=== PATIENT | female | born 1970 | race Caucasian/White ===

== ENCOUNTER 2018-04-05 08:56 | Day surgery (SDC) | payer OTHER ==
[2018-04-04 13:54] VITALS: BMI 29.3
[2018-04-05] MEDS ORDERED: LIDOCAINE HCL/PF 1% SDV 5ML VIAL ONE (09:40)
[2018-04-05] MEDS ORDERED: PROPOFOL 20 ML ONE ×2 (09:40)
[2018-04-05 10:58] VITALS: TEMP 98
[2018-04-05 11:49] VITALS: BP 109/62; PULSE 67
--- NOTE | 2018-04-06 17:19 | PATH ---
Surgical Pathology Report Patient Name: JAYLIN SHEN [facility]. Rec. #: [id number] /Age/Gender: 1970 (Age: 48) / F Account: [id number] Location: ASU-ENDOSCOPY Taken: 04/05/2018 Received: 04/05/2018 Reported: 04/06/2018 Physicians: Tashi Klein D.O. Specimen(s) Received A: BX CECUM B: BX RIGHT COLON C: BX TRANSVERSE COLON D: BX DESCENDING COLON E: BX SIGMOID COLON F: BX RECTUM Clinical History Ulcerative colitis Postoperative diagnosis: Diverticulosis, quiescent colitis Final Diagnosis A. CECUM, BIOPSY: COLONIC MUCOSA WITH MILD CHRONIC INFLAMMATION. B. RIGHT COLON, BIOPSY: COLONIC MUCOSA WITH MILD CHRONIC INFLAMMATION. C.TRANSVERSE COLON, BIOPSY: COLONIC MUCOSA WITH MILD CHRONIC INFLAMMATION AND LYMPHOID FOLLICLES. D. DESCENDING COLON, BIOPSY: COLONIC MUCOSA WITH MILD CHRONIC INFLAMMATION AND LYMPHOID FOLLICLES. E. SIGMOID COLON, BIOPSY: COLONIC MUCOSA WITH MILD CHRONIC INFLAMMATION AND LYMPHOID FOLLICLES. F. RECTUM, BIOPSY: COLONIC MUCOSA WITH MILD CHRONIC INFLAMMATION AND LYMPHOID FOLLICLES. COMMENT: NO ACUTE INFLAMMATION. NEGATIVE FOR DYSPLASIA. Electronically Signed Dontae Garibay M.D. Gross Description A. Received in formalin, labeled "biopsy cecum" are 4 mathews, irregular portions of soft tissue ranging from 0.1-0.4 cm. in greatest dimension. The specimens are submitted in toto in one cassette. B. Received in formalin labeled "biopsy right colon," is a 0.8 x 0.6 x 0.1 cm aggregate of mathews soft tissue fragments. The formalin is filtered and the specimen is entirely submitted in one cassette. C. Received in formalin labeled "biopsy transverse colon," is a 0.9 x 0.7 x 0.1 cm aggregate of mathews soft tissue fragments. The formalin is filtered and the specimen is entirely submitted in one cassette. D. Received in formalin labeled "biopsy descending colon," is a 0.9 x 0.8 x 0.1 cm aggregate of mathews soft tissue fragments. The formalin is filtered and the specimen is entirely submitted in one cassette. E. Received in formalin labeled "biopsy sigmoid colon," is a 1.3 x 0.9 x 0.1 cm aggregate of mathews soft tissue fragments. The formalin is filtered and the specimen is entirely submitted in one cassette. F. Received in formalin, labeled "biopsy rectum" are 8 mathews, irregular portions of soft tissue ranging from 0.1-0.5 cm. in greatest dimension. The specimens are submitted in toto in one cassette. 04/05/201804/05/2018
== END 2018-04-05 11:53 | disposition home or self-care (01) ==
LOC: JASU-ENDO 08:56
PROVIDERS: ATTEND Internal Medicine Gastroenterology
PROC: 0DBE8ZX Excision of Large Intestine, Via Natural or Artificial Opening Endoscopic, Diagnostic (ICD-10-PCS; principal; 2018-04-05 10:30)
DX: K51.90 Ulcerative colitis, unspecified, without complications (principal); K57.30 Diverticulosis of large intestine without perforation or abscess without bleeding; K64.8 Other hemorrhoids
CPT/HCPCS: 84703; 88305-TC

== ENCOUNTER 2022-07-02 05:37 | Day surgery (SDC) | payer OTHER ==
[2022-06-16 14:00] VITALS: BMI 32.7
[2022-07-02 12:22] VITALS: TEMP 97.8
[2022-07-02 12:52] VITALS: PULSE 69
[2022-07-02 13:09] VITALS: BP 114/61; RESP 15
== END 2022-07-02 13:05 | disposition home or self-care (01) ==
LOC: JASU-ENDO 05:37
PROVIDERS: ATTEND Internal Medicine Gastroenterology
PROC: 0DBL8ZX Excision of Transverse Colon, Via Natural or Artificial Opening Endoscopic, Diagnostic (ICD-10-PCS; 2022-07-02)
PROC: 0DBN8ZX Excision of Sigmoid Colon, Via Natural or Artificial Opening Endoscopic, Diagnostic (ICD-10-PCS; 2022-07-02)
PROC: 0DBP8ZX Excision of Rectum, Via Natural or Artificial Opening Endoscopic, Diagnostic (ICD-10-PCS; 2022-07-02)
PROC: 0DBM8ZX Excision of Descending Colon, Via Natural or Artificial Opening Endoscopic, Diagnostic (ICD-10-PCS; 2022-07-02)
PROC: 0DBH8ZX Excision of Cecum, Via Natural or Artificial Opening Endoscopic, Diagnostic (ICD-10-PCS; 2022-07-02)
PROC: 0DBK8ZX Excision of Ascending Colon, Via Natural or Artificial Opening Endoscopic, Diagnostic (ICD-10-PCS; principal; 2022-07-02 10:45)
DX: Z12.11 Encounter for screening for malignant neoplasm of colon (principal); K57.30 Diverticulosis of large intestine without perforation or abscess without bleeding; K64.8 Other hemorrhoids; Z87.19 Personal history of other diseases of the digestive system
CPT/HCPCS: 81025; 88305-TC

== ENCOUNTER 2024-03-21 21:55 | Inpatient (IN) | payer OTHER ==
[2024-03-21] MEDS ORDERED: morphine SULFATE 4 MG/ML VIAL ONE (23:04)
[2024-03-21] MEDS ORDERED: ACETAMINOPHEN INJECTION 100 ML IVPB ONE (23:04)
[2024-03-21] MEDS: LACTATED RINGERS SOLUTION 1,000 ML IV STA (23:26)
[2024-03-21] MEDS: morphine CARPU-JECT 4 MG/1 ML DISP.SYRIN IVPUSH ONE (23:26)
[2024-03-21] MEDS: ACETAMINOPHEN 1000 MG/100 ML BAG IVPB ONE (23:26)
[2024-03-21 23:32] LABS: HEMATOCRIT 35.2 % (32.4-45.2); HEMOGLOBIN 11.8 GM/dL (10.7-15.3); MCH 29.1 pg (25.7-33.7); MCHC 33.5 g/dl (32.0-36.0); MEAN CELL VOLUME 86.9 fl (80-96); MEAN PLT VOLUME 7.8 fl (7.5-11.1); PLATELET COUNT 270 10^3/uL (134-434); RBC 4.04 M/mm3 (3.60-5.2); RDW 16.1 % (11.6-15.6); WHITE BLOOD COUNT 7.1 K/mm3 (4.0-10.0)
[2024-03-21 23:34] LABS: EPI CELLS 25 /uL (0-25.1); HYALINE CASTS 8 /uL (0-3.1); URINE APPEARANCE TURBID; URINE BACTERIA 55 /uL (0-1359); URINE BILIRUBIN 1+ (NEGATIVE); URINE COLOR ORANGE; URINE GLUCOSE (UA) NEGATIVE (NEGATIVE); URINE KETONE 1+ (NEGATIVE); URINE LEUK ESTERASE 2+ (NEGATIVE); URINE NITRITE NEGATIVE (NEGATIVE); URINE PROTEIN 2+ (NEGATIVE); URINE WBC 1468 /uL (0-25.8)
[2024-03-21 23:38] LABS: INR 1.06 (0.83-1.09)
[2024-03-21 23:41] LABS: ACTIVATED PTT 27.3 SECONDS (25.2-36.5)
[2024-03-21 23:50] LABS: POTASSIUM 3.7 mmol/L (3.5-5.1)
[2024-03-21 23:53] LABS: ALBUMIN 3.1 g/dl (3.4-5.0); BLOOD UREA NITROGEN 13.1 mg/dL (7-18)
[2024-03-21 23:56] LABS: CREATININE 0.8 mg/dL (0.55-1.3)
[2024-03-21 23:58] LABS: BILIRUBIN,TOTAL 0.6 mg/dL (0.2-1); TOT PROT 6.1 g/dl (6.4-8.2)
[2024-03-22 00:07] LABS: URINE RBC 26400.5 /uL (0-23.9); YEAST NONE SEEN (NEGATIVE)
[2024-03-22] MEDS ORDERED: CEFTRIAXONE 1 GM/50 ML BAG ONE (00:17)
[2024-03-22 00:38] LABS: ANISOCYTOSIS 1+; MACROCYTOSIS 1+; OVALOCYTE 1+
[2024-03-22] MEDS: CEFTRIAXONE 1,000 MG in DEXTROSE 5%-WATER - 50 ML IVPB ONE (00:41)
[2024-03-22 00:47] LABS: PLATELET ESTIMATE ADEQUATE
[2024-03-22] MEDS: LACTATED RINGERS SOLUTION 1,000 ML IV STA ×2 (01:31→02:10)
[2024-03-22] MEDS ORDERED: ONDANSETRON 4 MG/2 ML VIAL ONE (02:05)
[2024-03-22] MEDS: ONDANSETRON 4 MG/2 ML VIAL IVPUSH ONE (02:10)
[2024-03-22] MEDS ORDERED: EPINEPHrine/PF 1 MG/1 ML (1:1,000) AMPULE ONE (02:27)
[2024-03-22] MEDS ORDERED: methylPREDNISolone NA SUCC 125 MG/2 ML VIAL ONE (02:27)
[2024-03-22] MEDS ORDERED: PIPERACILLIN/TAZOB 4.5 GM 4.5 GM/100 ML BAG IVPB ONE (02:27)
[2024-03-22] MEDS ORDERED: FAMOTIDINE 20 MG/50 ML IVPB 20 MG/50 ML MG IVPB ONE (02:28)
[2024-03-22] MEDS ORDERED: ANAPHYLAXIS KIT ONE (02:29)
[2024-03-22] MEDS ORDERED: ONDANSETRON 4 MG/2 ML VIAL IVPUSH PRN ×2 (02:41→19:49)
[2024-03-22] MEDS: PIPERACILLIN/TAZOB 4.5 GM 4.5 GM in DEXTROSE 5%-WATER 100 ML IVPB ONE (02:44)
[2024-03-22] MEDS: EPINEPHrine 1:1,000 0.3 MG/0.3 ML SYR IM ONE (02:44)
[2024-03-22] MEDS: methylPREDNISolone NA SUCC 125 MG/2 ML VIAL IVPUSH ONE (02:44)
[2024-03-22] MEDS ORDERED: FENTANYL CITRATE/PF 50 MCG/ML VIAL IVPUSH PRN ×2 (02:51→19:49)
[2024-03-22] MEDS: FAMOTIDINE 20 MG/50 ML IVPB 20 MG/50 ML MG IVPB ONE (02:58)
[2024-03-22 03:16] LABS: HEMOGLOBIN 10.8 GM/dL (10.7-15.3); PLATELET COUNT 219 10^3/uL (134-434); RDW 16.2 % (11.6-15.6)
[2024-03-22 03:21] LABS: HEMATOCRIT 31.8 % (32.4-45.2); MCH 29.5 pg (25.7-33.7); MCHC 33.9 g/dl (32.0-36.0); MEAN CELL VOLUME 87.1 fl (80-96); MEAN PLT VOLUME 7.9 fl (7.5-11.1); RBC 3.65 M/mm3 (3.60-5.2); WHITE BLOOD COUNT 8.3 K/mm3 (4.0-10.0)
[2024-03-22] MEDS: LACTATED RINGERS SOLUTION 1,000 ML/1,000 ML INFUS.BAG IV SCH (03:31)
[2024-03-22 03:33] LABS: POTASSIUM 3.9 mmol/L (3.5-5.1)
[2024-03-22 03:35] LABS: CALCIUM 7.5 mg/dL (8.5-10.1)
[2024-03-22 03:36] LABS: ALBUMIN 2.8 g/dl (3.4-5.0); BLOOD UREA NITROGEN 11.9 mg/dL (7-18); MAGNESIUM 1.8 mg/dL (1.8-2.4)
[2024-03-22 03:39] LABS: CREATININE 0.7 mg/dL (0.55-1.3); PHOSPHOROUS 2.9 mg/dL (2.5-4.9)
[2024-03-22 03:41] LABS: BILIRUBIN,TOTAL 0.6 mg/dL (0.2-1); INR 1.13 (0.83-1.09); PROTHROMBIN TIME (PATIENT) 12.7 SEC (9.7-13.0); TOT PROT 5.6 g/dl (6.4-8.2)
[2024-03-22 03:42] LABS: LACTIC ACID 2.1 mmol/L (0.4-2.0)
[2024-03-22 03:43] LABS: ACTIVATED PTT 27.5 SECONDS (25.2-36.5)
[2024-03-22] MEDS: PIPERACILLIN/TAZOB 4.5 GM 4.5 GM in DEXTROSE 5%-WATER 100 ML IVPB SCH ×2 (04:43→21:21)
[2024-03-22 05:18] LABS: ANISOCYTOSIS 3+; MACROCYTOSIS 0; OVALOCYTE 1+; ROULEAU 1+
[2024-03-22] MEDS: KCL 10 MEQ IVPB 10 MEQ/100 ML INFUS.BAG IVPB SCH (05:19)
[2024-03-22] MEDS: MAGNESIUM 1GM/D5W 100ML - 100 ML IVPB IVPB ONE (06:36)
[2024-03-22] MEDS: CALCIUM GLUC IN NACL, ISO-OSM 1 GM/50 ML BAG IVPB ONE (06:58)
[2024-03-22] MEDS: INSULIN ASPART SLIDING SCALE (NOVOLOG) 1 VIAL SQ SCH (06:58)
[2024-03-22] MEDS: MUPIROCIN 2% TOPICAL OINTMENT FOR DECOLONIZATION NS SCH (09:00)
[2024-03-22] MEDS: PANTOPRAZOLE SODIUM 40 MG VIAL IVPUSH SCH (09:02)
[2024-03-22] MEDS ORDERED: ENOXAPARIN NA (PORCINE) 40 MG/0.4 ML DISP.SYRIN SQ SCH (10:00)
[2024-03-22] MEDS: DEXTROSE 5%-LACTATED RINGERS 1,000 ML IV SCH ×2 (10:56→21:22)
[2024-03-22] MEDS: ACETAMINOPHEN 1000 MG/100 ML BAG IVPB PRN (15:07)
[2024-03-22] MEDS: CEFTRIAXONE 1,000 MG in DEXTROSE 5%-WATER - 50 ML IVPB SCH (17:58)
[2024-03-22] MEDS ORDERED: ACETAMINOPHEN 1000 MG/100 ML BAG IVPB PRN (19:49)
[2024-03-22] MEDS ORDERED: CHLORHEXIDINE GLUCONATE 4% CLEANSER FOR DECOLONIZATION TP SCH (22:00)
[2024-03-23] MEDS: INSULIN ASPART SLIDING SCALE (NOVOLOG) 1 VIAL SQ SCH
[2024-03-23] MEDS ORDERED: PIPERACILLIN/TAZOB 4.5 GM 4.5 GM in DEXTROSE 5%-WATER 100 ML IVPB SCH (03:00)
[2024-03-23] MEDS: CEFTRIAXONE 1 GM in DEXTROSE 5%-WATER - 50 ML IVPB SCH (09:06)
[2024-03-23] MEDS: PANTOPRAZOLE SODIUM 40 MG VIAL IVPUSH SCH (09:06)
[2024-03-23 10:42] LABS: HEMATOCRIT 31.8 % (32.4-45.2); HEMOGLOBIN 10.2 GM/dL (10.7-15.3); MCH 28.4 pg (25.7-33.7); MCHC 32.2 g/dl (32.0-36.0); MEAN CELL VOLUME 88.3 fl (80-96); MEAN PLT VOLUME 8.4 fl (7.5-11.1); PLATELET COUNT 289 10^3/uL (134-434); RDW 15.9 % (11.6-15.6)
[2024-03-23 11:05] LABS: POTASSIUM 3.7 mmol/L (3.5-5.1)
[2024-03-23 11:08] LABS: CALCIUM 8.6 mg/dL (8.5-10.1)
[2024-03-23 11:09] LABS: ALBUMIN 2.7 g/dl (3.4-5.0); BLOOD UREA NITROGEN 10.9 mg/dL (7-18); MAGNESIUM 2.2 mg/dL (1.8-2.4)
[2024-03-23 11:12] LABS: CREATININE 0.6 mg/dL (0.55-1.3); PHOSPHOROUS 2.1 mg/dL (2.5-4.9)
[2024-03-23 11:13] LABS: TOT PROT 5.9 g/dl (6.4-8.2)
[2024-03-23 11:14] LABS: BILIRUBIN,TOTAL 0.4 mg/dL (0.2-1)
[2024-03-23] MEDS: ACETAMINOPHEN 1000 MG/100 ML BAG IVPB PRN (11:14)
[2024-03-23 11:43] LABS: ANISOCYTOSIS 0; MACROCYTOSIS 0
[2024-03-23] MEDS: POTASSIUM CHLORIDE 10 MEQ in SODIUM CHLORIDE 0.45% 1,000 ML IVPB SCH (13:01)
[2024-03-24 08:10] LABS: CARCINOEMBRYONIC ANTIGEN 2.8 ng/mL (0.0-4.7)
[2024-03-24] MEDS: ACETAMINOPHEN 1000 MG/100 ML BAG IVPB PRN (12:33)
[2024-03-24 15:43] LABS: BASO % 0.2 % (0-2.0); HEMATOCRIT 31.2 % (32.4-45.2); HEMOGLOBIN 10.1 GM/dL (10.7-15.3); LYMPH % 6.4 % (8-40); MCH 27.9 pg (25.7-33.7); MCHC 32.2 g/dl (32.0-36.0); MEAN CELL VOLUME 86.4 fl (80-96); MEAN PLT VOLUME 7.9 fl (7.5-11.1); MONO % 5.7 % (3.8-10.2); NEUT % 86.7 % (42.8-82.8); PLATELET COUNT 298 10^3/uL (134-434); RBC 3.61 M/mm3 (3.60-5.2); RDW 16.3 % (11.6-15.6); WHITE BLOOD COUNT 11.6 K/mm3 (4.0-10.0)
[2024-03-24 16:10] LABS: POTASSIUM 3.5 mmol/L (3.5-5.1)
[2024-03-24 16:12] LABS: CALCIUM 7.9 mg/dL (8.5-10.1)
[2024-03-24 16:13] LABS: ALBUMIN 2.3 g/dl (3.4-5.0); BLOOD UREA NITROGEN 6.1 mg/dL (7-18)
[2024-03-24 16:16] LABS: CREATININE 0.4 mg/dL (0.55-1.3)
[2024-03-24 16:17] LABS: BILIRUBIN,TOTAL 0.5 mg/dL (0.2-1); TOT PROT 5.4 g/dl (6.4-8.2)
[2024-03-25] MEDS ORDERED: cefTRIAXone SODIUM 1 GM VIAL ONE (10:18)
[2024-03-25] MEDS: MESALAMINE 800 MG TABLET.DR PO SCH (11:11)
[2024-03-25] MEDS: D5-1/2NS+10 MEQ KCL - 10 MEQ/1,000 ML INFUS.BAG IV SCH (13:00)
[2024-03-25] MEDS: DEXTROSE 50%-WATER 25 GM/50 ML DISP.SYRIN IVPUSH ONE (13:01)
[2024-03-25] MEDS: SIMETHICONE 80 MG TAB.CHEW (FP) PO SCH (17:13)
[2024-03-26 09:44] LABS: HEMATOCRIT 32.3 % (32.4-45.2); HEMOGLOBIN 10.9 GM/dL (10.7-15.3); MCH 28.6 pg (25.7-33.7); MCHC 33.8 g/dl (32.0-36.0); MEAN CELL VOLUME 84.8 fl (80-96); MEAN PLT VOLUME 7.6 fl (7.5-11.1); PLATELET COUNT 386 10^3/uL (134-434); RBC 3.82 M/mm3 (3.60-5.2); RDW 16.2 % (11.6-15.6)
[2024-03-26 10:06] LABS: POTASSIUM 3.2 mmol/L (3.5-5.1)
[2024-03-26 10:15] LABS: ALBUMIN 2.4 g/dl (3.4-5.0)
[2024-03-26 10:18] LABS: CREATININE 0.5 mg/dL (0.55-1.3)
[2024-03-26 10:19] LABS: BILIRUBIN,TOTAL 0.4 mg/dL (0.2-1); TOT PROT 5.5 g/dl (6.4-8.2)
[2024-03-26 10:25] LABS: ANISOCYTOSIS 0; MACROCYTOSIS 0
[2024-03-26] MEDS: KCL 10 MEQ IVPB 10 MEQ/100 ML INFUS.BAG IVPB SCH (18:03)
[2024-03-26] MEDS: POTASSIUM CHLORIDE ORAL LIQUID 20 MEQ/15 ML PO ONE (18:07)
[2024-03-27 09:17] LABS: BASO % 0.3 % (0-2.0); EOS % 1.2 % (0-4.5); HEMATOCRIT 34.2 % (32.4-45.2); HEMOGLOBIN 11.4 GM/dL (10.7-15.3); LYMPH % 9.8 % (8-40); MCH 28.4 pg (25.7-33.7); MCHC 33.4 g/dl (32.0-36.0); MEAN PLT VOLUME 7.6 fl (7.5-11.1); MONO % 5.8 % (3.8-10.2); NEUT % 82.9 % (42.8-82.8); PLATELET COUNT 424 10^3/uL (134-434); RBC 4.02 M/mm3 (3.60-5.2); RDW 16.3 % (11.6-15.6); WHITE BLOOD COUNT 14.3 K/mm3 (4.0-10.0)
[2024-03-27 09:48] LABS: CHLORIDE 108 mmol/L (98-107); POTASSIUM 3.4 mmol/L (3.5-5.1); SODIUM 138 mmol/L (136-145)
[2024-03-27 10:05] LABS: ALK PHOS 119 U/L (45-117)
[2024-03-27 10:06] LABS: ALBUMIN 2.4 g/dl (3.4-5.0); ANION GAP 10 mmol/L (4-13); CALCIUM 8.3 mg/dL (8.5-10.1); CO2 21 mmol/L (21-32); GLUCOSE,RANDOM 173 mg/dL (74-106)
[2024-03-27 10:09] LABS: CREATININE 0.5 mg/dL (0.55-1.3); SGOT/AST 41 U/L (15-37); SGPT/ALT 30 U/L (13-61)
[2024-03-27 10:10] LABS: BILIRUBIN,TOTAL 0.3 mg/dL (0.2-1)
[2024-03-27 10:11] LABS: BLOOD UREA NITROGEN 2.8 mg/dL (7-18); TOT PROT 5.7 g/dl (6.4-8.2)
[2024-03-27] MEDS: KCL 10 MEQ IVPB 10 MEQ/100 ML INFUS.BAG IVPB SCH (10:43)
[2024-03-27] MEDS: ACETAMINOPHEN 325 MG TABLET (FP) PO PRN (14:54)
[2024-03-27] MEDS ORDERED: ACETAMINOPHEN 1000 MG/100 ML BAG IVPB PRN (16:57)
[2024-03-27] MEDS: MELATONIN 5 MG TABLETS PO PRN (23:52)
[2024-03-28 08:55] LABS: CHLORIDE 107 mmol/L (98-107); POTASSIUM 3.6 mmol/L (3.5-5.1); SODIUM 139 mmol/L (136-145)
[2024-03-28 08:57] LABS: EOS % 1.6 % (0-4.5); HEMOGLOBIN 11.4 GM/dL (10.7-15.3); LYMPH % 17.3 % (8-40); MCH 27.6 pg (25.7-33.7); MCHC 32.5 g/dl (32.0-36.0); MEAN PLT VOLUME 7.2 fl (7.5-11.1); MONO % 10.7 % (3.8-10.2); NEUT % 70.4 % (42.8-82.8); PLATELET COUNT 478 10^3/uL (134-434); RBC 4.12 M/mm3 (3.60-5.2); RDW 16.3 % (11.6-15.6); WHITE BLOOD COUNT 12.9 K/mm3 (4.0-10.0)
[2024-03-28 08:58] LABS: CALCIUM 8.1 mg/dL (8.5-10.1)
[2024-03-28 08:59] LABS: ALBUMIN 2.4 g/dl (3.4-5.0); ANION GAP 8 mmol/L (4-13); CO2 24 mmol/L (21-32); GLUCOSE,RANDOM 121 mg/dL (74-106); MAGNESIUM 1.9 mg/dL (1.8-2.4)
[2024-03-28 09:02] LABS: CREATININE 0.4 mg/dL (0.55-1.3); PHOSPHOROUS 3.1 mg/dL (2.5-4.9); SGOT/AST 132 U/L (15-37); SGPT/ALT 112 U/L (13-61)
[2024-03-28 09:04] LABS: BILIRUBIN,TOTAL 0.3 mg/dL (0.2-1); TOT PROT 5.5 g/dl (6.4-8.2)
[2024-03-28 09:05] LABS: ALK PHOS 129 U/L (45-117)
[2024-03-28 11:16] LABS: EPI CELLS 8 /uL (0-25.1); HYALINE CASTS 0 /uL (0-3.1); URINE APPEARANCE CLEAR; URINE BACTERIA 9 /uL (0-1359); URINE BILIRUBIN NEGATIVE (NEGATIVE); URINE COLOR YELLOW; URINE GLUCOSE (UA) NEGATIVE (NEGATIVE); URINE KETONE NEGATIVE (NEGATIVE); URINE LEUK ESTERASE 1+ (NEGATIVE); URINE NITRITE NEGATIVE (NEGATIVE); URINE PROTEIN NEGATIVE (NEGATIVE); URINE RBC 39 /uL (0-23.9); URINE UROBILINOGEN 0.2 mg/dL (0.2-1.0); URINE WBC 7 /uL (0-25.8)
[2024-03-28 11:51] LABS: ERYTHROCYTE SEDIMENTATION RATE 43 mm/hr (0-30)
[2024-03-28] MEDS ORDERED: POTASSIUM CHLORIDE TABS 20 MEQ TABLET.ER (FP) PO SCH (13:30)
[2024-03-28] MEDS: POTASSIUM CHLORIDE ORAL LIQUID 20 MEQ/15 ML PO ONE (13:36)
[2024-03-28] MEDS: POTASSIUM CHLORIDE TABS 20 MEQ TABLET.ER (FP) PO ONE (13:38)
[2024-03-28] MEDS: ACETAMINOPHEN/CAFFEINE/BUTALBITAL 1 TAB PO ONE (23:21)
[2024-03-28] MEDS: hydrOXYzine PAMOATE 25 MG CAPSULE (FP) PO ONE (23:23)
[2024-03-29 09:15] LABS: HEMOGLOBIN 11.8 GM/dL (10.7-15.3); MCH 28.6 pg (25.7-33.7); MCHC 33.7 g/dl (32.0-36.0); MEAN CELL VOLUME 84.8 fl (80-96); MEAN PLT VOLUME 7.2 fl (7.5-11.1); PLATELET COUNT 541 10^3/uL (134-434); RBC 4.13 M/mm3 (3.60-5.2); RDW 16.5 % (11.6-15.6); WHITE BLOOD COUNT 11.6 K/mm3 (4.0-10.0)
[2024-03-29 09:21] LABS: INR 1.19 (0.83-1.09); PROTHROMBIN TIME (PATIENT) 13.4 SEC (9.7-13.0)
[2024-03-29 09:40] LABS: POTASSIUM 3.9 mmol/L (3.5-5.1)
[2024-03-29 09:44] LABS: ALBUMIN 2.5 g/dl (3.4-5.0); CALCIUM 8.4 mg/dL (8.5-10.1)
[2024-03-29 09:45] LABS: BLOOD UREA NITROGEN 3.1 mg/dL (7-18)
[2024-03-29 09:47] LABS: CREATININE 0.7 mg/dL (0.55-1.3)
[2024-03-29 09:48] LABS: BILIRUBIN,TOTAL 0.3 mg/dL (0.2-1); TOT PROT 5.8 g/dl (6.4-8.2)
[2024-03-29 10:58] LABS: ANISOCYTOSIS 0; HELMET CELLS 0; HOWELL-JOLLY BODIES 0; MACROCYTOSIS 0; OVALOCYTE 0; ROULEAU 0; SICKELED CELLS 0; TARGET CELLS 0; TEAR DROP CELLS 0; TOXIC GRANULATION 0
[2024-03-29] MEDS: SODIUM CHLORIDE 1,000 ML IV SCH (12:01)
[2024-03-29] MEDS: BISACODYL 5 MG TABLET.DR (FP) PO ONE (17:14)
[2024-03-29] MEDS: PEG 3350/NA SULF BICARB CL/KCL 4000 ML SOLN.RECON PO ONE (18:27)
[2024-03-30 08:14] LABS: BASO % 0.8 % (0-2.0); HEMATOCRIT 33.8 % (32.4-45.2); HEMOGLOBIN 11.4 GM/dL (10.7-15.3); LYMPH % 19.1 % (8-40); MCH 28.9 pg (25.7-33.7); MCHC 33.8 g/dl (32.0-36.0); MEAN CELL VOLUME 85.6 fl (80-96); MEAN PLT VOLUME 7.1 fl (7.5-11.1); NEUT % 69.1 % (42.8-82.8); PLATELET COUNT 576 10^3/uL (134-434); RBC 3.95 M/mm3 (3.60-5.2); RDW 16.6 % (11.6-15.6); WHITE BLOOD COUNT 9.9 K/mm3 (4.0-10.0)
[2024-03-30 08:27] LABS: POTASSIUM 3.8 mmol/L (3.5-5.1)
[2024-03-30 08:33] LABS: ALBUMIN 2.5 g/dl (3.4-5.0); BLOOD UREA NITROGEN 3.4 mg/dL (7-18); CALCIUM 8.3 mg/dL (8.5-10.1); MAGNESIUM 2.1 mg/dL (1.8-2.4)
[2024-03-30 08:35] LABS: CREATININE 0.6 mg/dL (0.55-1.3)
[2024-03-30 08:36] LABS: BILIRUBIN,TOTAL 0.4 mg/dL (0.2-1); PHOSPHOROUS 3.1 mg/dL (2.5-4.9); TOT PROT 5.6 g/dl (6.4-8.2)
[2024-03-31 09:36] LABS: HEMATOCRIT 32.3 % (32.4-45.2); HEMOGLOBIN 11.1 GM/dL (10.7-15.3); MCH 29.1 pg (25.7-33.7); MCHC 34.2 g/dl (32.0-36.0); MEAN CELL VOLUME 85.1 fl (80-96); MEAN PLT VOLUME 7.2 fl (7.5-11.1); PLATELET COUNT 559 10^3/uL (134-434); RDW 16.3 % (11.6-15.6); WHITE BLOOD COUNT 9.3 K/mm3 (4.0-10.0)
[2024-03-31 10:12] LABS: ALBUMIN 2.5 g/dl (3.4-5.0); CALCIUM 8.4 mg/dL (8.5-10.1)
[2024-03-31 10:13] LABS: BLOOD UREA NITROGEN 3.6 mg/dL (7-18)
[2024-03-31 10:15] LABS: CREATININE 0.5 mg/dL (0.55-1.3)
[2024-03-31 10:17] LABS: BILIRUBIN,TOTAL 0.3 mg/dL (0.2-1); TOT PROT 5.6 g/dl (6.4-8.2)
[2024-03-31] MEDS ORDERED: ONDANSETRON 4 MG/2 ML VIAL IVPUSH PRN ×3 (10:35→13:06)
[2024-03-31] MEDS ORDERED: PROMETHAZINE HCL 25 MG/1 ML VIAL IVPB PRN ×2 (10:35→13:06)
[2024-03-31] MEDS ORDERED: FENTANYL CITRATE/PF 50 MCG/ML VIAL ONE ×6 (10:37→14:00)
[2024-03-31] MEDS ORDERED: PROPOFOL 20 ML ONE (10:38)
[2024-03-31] MEDS ORDERED: MIDAZOLAM HCL 2 MG/2 ML SINGLE DOSE VIAL ONE (10:38)
[2024-03-31] MEDS ORDERED: ROCURONIUM BROMIDE 50 MG/5 ML SYRINGE ONE ×2 (10:38→11:51)
[2024-03-31] MEDS ORDERED: LIDOCAINE 1%/EPI 1:100000 (20 ML MULTI DOSE VIAL) ONE (10:44)
[2024-03-31] MEDS ORDERED: BUPIVACAINE HCL/PF 0.5% (5MG/ML) 10 ML VIAL ONE (10:44)
[2024-03-31] MEDS ORDERED: LIDOCAINE HCL 1%, 10 MG/ML (20ML VIAL) ONE (10:44)
[2024-03-31] MEDS ORDERED: LACTATED RINGERS SOLUTION 1,000 ML IV SCH (10:45)
[2024-03-31] MEDS ORDERED: DEXAMETHASONE SOD PHOSPHATE 4 MG/1 ML VIAL ONE (11:22)
[2024-03-31] MEDS ORDERED: ONDANSETRON 4 MG/2 ML VIAL ONE (11:22)
[2024-03-31] MEDS: LIDOCAINE 1%/EPI 1:100000 (20 ML MULTI DOSE VIAL) IJ ONE ×2 (11:30)
[2024-03-31] MEDS ORDERED: ACETAMINOPHEN INJECTION 100 ML IVPB ONE (12:14)
[2024-03-31] MEDS ORDERED: SUGAMMADEX SODIUM 200 MG/2 ML VIAL ONE (12:18)
[2024-03-31] MEDS ORDERED: KETOROLAC TROMETHAMINE 30 MG/1 ML VIAL ONE (12:42)
[2024-03-31] MEDS: LACTATED RINGERS SOLUTION 1,000 ML IV SCH (13:00)
[2024-03-31] MEDS: SIMETHICONE 80 MG TAB.CHEW (FP) PO SCH (15:33)
[2024-03-31] MEDS: INSULIN ASPART SLIDING SCALE (NOVOLOG) 1 VIAL SQ SCH (18:19)
[2024-03-31 19:36] VITALS: RESP 18
[2024-03-31 19:42] VITALS: BMI 33.3
[2024-03-31] MEDS: ACETAMINOPHEN 1000 MG/100 ML BAG IVPB PRN (21:09)
[2024-03-31] MEDS: MELATONIN 5 MG TABLETS PO PRN (21:59)
[2024-04-01 08:05] LABS: HEMATOCRIT 30.2 % (32.4-45.2); HEMOGLOBIN 9.8 GM/dL (10.7-15.3); MCHC 32.5 g/dl (32.0-36.0); MEAN CELL VOLUME 86.3 fl (80-96); MEAN PLT VOLUME 7.1 fl (7.5-11.1); PLATELET COUNT 534 10^3/uL (134-434); RDW 16.1 % (11.6-15.6); WHITE BLOOD COUNT 11.1 K/mm3 (4.0-10.0)
[2024-04-01 08:26] LABS: POTASSIUM 3.7 mmol/L (3.5-5.1)
[2024-04-01 08:32] LABS: ALBUMIN 2.5 g/dl (3.4-5.0); CALCIUM 8.3 mg/dL (8.5-10.1); CREATININE 0.6 mg/dL (0.55-1.3)
[2024-04-01 08:34] LABS: BILIRUBIN,TOTAL 0.7 mg/dL (0.2-1); TOT PROT 5.2 g/dl (6.4-8.2)
[2024-04-01] MEDS: CEFTRIAXONE 1 GM in DEXTROSE 5%-WATER - 50 ML IVPB SCH (09:32)
[2024-04-01] MEDS: MESALAMINE 800 MG TABLET.DR PO SCH (09:32)
[2024-04-01] MEDS: PANTOPRAZOLE SODIUM 40 MG VIAL IVPUSH SCH (09:32)
[2024-04-01 14:46] VITALS: BP 118/70; PULSE 91; TEMP 98.1
== END 2024-04-01 15:12 | disposition home or self-care (01) | DRG 335 ==
LOC: JER 21:55 → JERBED 03-22 02:35 → JICU 03-22 04:14 → J6S 03-22 19:22
PROVIDERS: ADMIT Internal Medicine Pulmonary Disease; ATTEND Internal Medicine
PROC: 0DBH8ZX Excision of Cecum, Via Natural or Artificial Opening Endoscopic, Diagnostic (ICD-10-PCS; 2024-03-30)
PROC: 0DBL8ZX Excision of Transverse Colon, Via Natural or Artificial Opening Endoscopic, Diagnostic (ICD-10-PCS; 2024-03-30)
PROC: 0DBN8ZX Excision of Sigmoid Colon, Via Natural or Artificial Opening Endoscopic, Diagnostic (ICD-10-PCS; 2024-03-30)
PROC: 0DBP8ZX Excision of Rectum, Via Natural or Artificial Opening Endoscopic, Diagnostic (ICD-10-PCS; 2024-03-30)
PROC: 0DBM8ZX Excision of Descending Colon, Via Natural or Artificial Opening Endoscopic, Diagnostic (ICD-10-PCS; 2024-03-30)
PROC: 0UT64ZZ Resection of Left Fallopian Tube, Percutaneous Endoscopic Approach (ICD-10-PCS; 2024-03-31)
PROC: 0UDB7ZX Extraction of Endometrium, Via Natural or Artificial Opening, Diagnostic (ICD-10-PCS; 2024-03-31)
PROC: 0DNW4ZZ Release Peritoneum, Percutaneous Endoscopic Approach (ICD-10-PCS; principal; 2024-03-31 10:30)
DX: K56.51 Intestinal adhesions [bands], with partial obstruction (principal); J96.01 Acute respiratory failure with hypoxia; T88.6XXA Anaphylactic reaction due to adverse effect of correct drug or medicament properly administered, initial encounter; J98.11 Atelectasis; K51.90 Ulcerative colitis, unspecified, without complications; K56.609 Unspecified intestinal obstruction, unspecified as to partial versus complete obstruction; D64.9 Anemia, unspecified; N30.90 Cystitis, unspecified without hematuria; N83.201 Unspecified ovarian cyst, right side; I95.89 Other hypotension; R73.9 Hyperglycemia, unspecified; T50.8X5A Adverse effect of diagnostic agents, initial encounter; Y84.8 Other medical procedures as the cause of abnormal reaction of the patient, or of later complication, without mention of misadventure at the time of the procedure; N93.8 Other specified abnormal uterine and vaginal bleeding; E87.6 Hypokalemia; R31.9 Hematuria, unspecified; D75.839 Thrombocytosis, unspecified; N70.11 Chronic salpingitis; R79.89 Other specified abnormal findings of blood chemistry; K57.30 Diverticulosis of large intestine without perforation or abscess without bleeding; K64.8 Other hemorrhoids
CPT/HCPCS: 36415; 71045-TC-FY; 71250-TC; 72197-TC; 74018-TC-FY; 74019-TC-FY; 74176-TC; 74177-TC; 76700-TC; 76830-TC; 80053; 80307; 81003; 82105; 82378; 82962; 83036; 83520; 83605; 83615; 83690; 83735; 83993; 84100; 85025; 85027; 85610; 85651; 85730; 86140; 86301; 86304; 86850; 86900; 86901; 87086; 87186; 87324; 87449; 87491; 87591; 88304-TC; 88305-TC; 93005; 93010; 94010; 94760; 99291; J0131; J0171

== ENCOUNTER 2024-09-26 04:09 | Day surgery (SDC) | payer OTHER ==
[2024-09-19 16:35] VITALS: BMI 42.0
[2024-09-26 09:12] VITALS: TEMP 97.2
[2024-09-26 09:51] VITALS: BP 112/77; PULSE 71; RESP 17
== END 2024-09-26 10:15 | disposition home or self-care (01) ==
LOC: JASU-ENDO 04:09
PROVIDERS: ATTEND Internal Medicine Gastroenterology
PROC: 0DB78ZX Excision of Stomach, Pylorus, Via Natural or Artificial Opening Endoscopic, Diagnostic (ICD-10-PCS; 2024-09-26)
PROC: 0DB68ZX Excision of Stomach, Via Natural or Artificial Opening Endoscopic, Diagnostic (ICD-10-PCS; 2024-09-26)
PROC: 0DB38ZX Excision of Lower Esophagus, Via Natural or Artificial Opening Endoscopic, Diagnostic (ICD-10-PCS; 2024-09-26)
PROC: 0DB98ZX Excision of Duodenum, Via Natural or Artificial Opening Endoscopic, Diagnostic (ICD-10-PCS; principal; 2024-09-26 09:45)
DX: K29.50 Unspecified chronic gastritis without bleeding (principal); K31.7 Polyp of stomach and duodenum
CPT/HCPCS: 88305-TC; 88341-TC; 88342-TC

== ENCOUNTER 2024-11-22 04:32 | Day surgery (SDC) | payer OTHER ==
[2024-11-16 13:51] VITALS: BMI 34.4
[2024-11-22 13:45] VITALS: TEMP 97.6
[2024-11-22 14:12] VITALS: RESP 16
[2024-11-22 15:03] VITALS: BP 116/70; PULSE 68
== END 2024-11-22 15:04 | disposition home or self-care (01) ==
LOC: JASU-ENDO 04:32
PROVIDERS: ATTEND Internal Medicine Gastroenterology
PROC: 0DJ68ZZ Inspection of Stomach, Via Natural or Artificial Opening Endoscopic (ICD-10-PCS; principal; 2024-11-22 11:00)
DX: K25.9 Gastric ulcer, unspecified as acute or chronic, without hemorrhage or perforation (principal); K31.89 Other diseases of stomach and duodenum